=== PATIENT | male | born 1985 | race Caucasian/White ===

== ENCOUNTER 2020-05-03 13:05 | Emergency (ER) | payer MEDICAID ==
[~2020-05-03] VITALS: Ht 188 cm; Wt 93.8 kg
[2020-05-03 13:31] VITALS: BP 139/79
== END 2020-05-03 14:32 | disposition home or self-care (01) ==
LOC: ED 14:25
DX: Z76.0 Encounter for issue of repeat prescription (principal)
CPT/HCPCS: 99281

== ENCOUNTER 2020-07-02 12:27 | Observation (INO) | payer MEDICAID ==
[~2020-07-02] VITALS: Ht 188 cm; Wt 73.7 kg
[2020-07-02 12:41] VITALS: BP 149/86
--- NOTE | 2020-07-02 12:54 | NUR ---
ASSUMED CARE, DR ROSE BEDSIDE.
[2020-07-02] MEDS ORDERED: LORazepam 1MG TABLET PO ONE (13:00)
--- NOTE | 2020-07-02 13:26 | NUR ---
lab at bedside at this time. pt refusing to allow lab to draw. made aware. pt unable to have a fluid conversation. pt "fired this rn" at this time."
[2020-07-02] MEDS ORDERED: LORazepam 1MG TABLET ONE (13:46)
--- NOTE | 2020-07-02 14:01 | NUR ---
PT MEDICATED, BUT WAS ONLY WANTING TO TAKE 1 PILL, NOT TWO.
[2020-07-02 14:09] LABS: BASOPHILS % (AUTO) 1 % (0-1); EOSINOPHILS % (AUTO) 0 % (1-7); LYMPHOCYTES % (AUTO) 23 % (22-44); MEAN CORPUSCULAR HEMOGLOBIN 30.5 pg (27.5-34.5); MEAN CORPUSCULAR HGB CONC 34.5 g/dL (33.2-36.2); MEAN PLATELET VOLUME 7.7 fL (7.4-10.4); MONOCYTES % (AUTO) 12 % (2-9); NEUTROPHILS % (AUTO) 64 % (42-75); PLATELET COUNT 265 x10^3/uL (130-400); RED BLOOD COUNT 5.27 x10^6/uL (4.38-5.82); RED CELL DISTRIBUTION WIDTH 14.4 % (9.4-14.8)
[2020-07-02 14:15] LABS: MD NO
[2020-07-02 14:16] LABS: ALANINE AMINOTRANSFERASE 69 U/L (12-78); ALBUMIN 4.4 g/dL (3.4-5.0); ANION GAP 14 mmol/L (5-15); CALCIUM 9.1 mg/dL (8.5-10.1); CHLORIDE 106 mmol/L (98-107); CREATININE 1.19 mg/dL (0.7-1.3)
[2020-07-02 14:18] LABS: ALKALINE PHOSPHATASE 82 U/L (45-117); BILIRUBIN,TOTAL 2.3 mg/dL (0.2-1.0); TOTAL PROTEIN 7.6 g/dL (6.4-8.2)
--- NOTE | 2020-07-02 14:18 | NUR ---
RECEIVED REPORT FROM KYLER ESPINOZA AND JOSEP RN. ASSUMING CARE AT THIS TIME. PT IS NOT ON LEGAL HOLD PT DENIES SI/HI. PT BELONGING RIGHT OUTSIDE OF ROOM. PT LAYING ON GURNEY. PT FIDGITY. JULI. URINAL AT BEDSIDE FOR URINE SAMPLE.
--- NOTE | 2020-07-02 14:22 | NUR ---
FOOD AND WATER GIVEN TO PATIENT.
[2020-07-02 14:26] LABS: SALICYLATE LEVEL < 1.7 mg/dL (2.8-20.0)
--- NOTE | 2020-07-02 14:28 | NUR ---
SBAR REPORT GIVEN TO MAYUR
--- NOTE | 2020-07-02 14:28 | NUR ---
ERMD OK THAT PT HAS NOT PROVIDE URINE SAMPLE. WILL SEND WHEN URINE PROVIDED. PT PACING IN ROOM, FIDGITY, TALKING TO SELF. JOSEP ESPINOZA PROVIDED SNACKS.
== END 2020-07-02 15:24 | disposition home or self-care (01) ==
LOC: ED 12:30 → EDIP 14:49 → ED 15:24
PROVIDERS: ADMIT Emergency Medicine; ATTEND Emergency Medicine
DX: Z00.01 Encounter for general adult medical examination with abnormal findings (principal); F15.10 Other stimulant abuse, uncomplicated; Z63.8 Other specified problems related to primary support group; Z91.83 Wandering in diseases classified elsewhere
CPT/HCPCS: 36415; 80053; 80299; 80320; 80329; 85025; 99284; G0378; G0480